=== PATIENT | female | born 1985 | race Two or more races ===

== ENCOUNTER 2017-02-12 17:01 | Emergency (ER) | payer BC, OTHER ==
[2017-02-12 17:35] VITALS: BP 143/56
--- NOTE | 2017-02-12 18:38 | UC ---
Ear Complaint HPI - HPI Summary HPI Summary: Noticed some pain and swelling sensation behind L ear about 5 days ago. Also noticed hard lump in neck below this. denies fever or vomiting. No recent URI sx or allergies. No past ENT surgeries. - History of Current Complaint Chief Complaint: UCEar Stated Complaint: EAR ACHE Time Seen by Provider: 02/12/17 18:19 Hx Obtained From: Patient ?: No Onset/Duration: Gradual Onset, Lasting Days Severity Initially: Mild Severity Currently: Mild Alleviating Factors: Nothing Associated Signs/Symptoms: Positive: Swelling @. Negative: Discharge, Hearing Loss, URI Symptoms - Allergies/Home Medications Allergies/Adverse Reactions: Allergies Allergy/AdvReac Type Severity Reaction Status Date / Time No Known Allergies Allergy Verified 02/12/17 17:30 PMH/Surg Hx/FS Hx/Imm Hx GI/ History Of: Reports: Ulcer - Surgical History Surgical History: None - Family History Known Family History: Positive: Hypertension - Social History Alcohol Use: Rare Substance Use Type: None Smoking Status (MU): Never Smoked Tobacco Review of Systems Constitutional: Negative Skin: Other - painful behind L ear Eyes: Negative ENT: Negative Respiratory: Negative Cardiovascular: Negative Gastrointestinal: Negative Genitourinary: Negative Motor: Negative Neurovascular: Negative Musculoskeletal: Negative Neurological: Negative Psychological: Negative All Other Systems Reviewed And Are Negative: Yes Physical Exam Triage Information Reviewed: Yes Appearance: Well-Appearing, No Pain Distress, Well-Nourished Vital Signs: Initial Vital Signs Temp 98.0 F 02/12/17 17:30 Pulse 65 02/12/17 17:30 Resp 16 02/12/17 17:30 BP 143/56 02/12/17 17:30 Pulse Ox 100 02/12/17 17:30 Vital Signs Reviewed: Yes Eye Exam: Normal Eyes: Positive: Conjunctiva Clear ENT: Positive: Hearing grossly normal, Pharynx normal, TMs normal, Other: - redness, swelling at crease where L helix joins the head. No fluctuance noted.. Negative: Nasal congestion, Nasal drainage, TM bulging, TM dull, TM red, Tonsillar swelling, Tonsillar exudate Dental Exam: Normal Dental: Negative: Percussion Tenderness @, Gross Decay/Caries @, Dental Fracture @ Neck: Positive: Supple, Enlarged Nodes @ - L postauricular Respiratory Exam: Normal Respiratory: Positive: Chest non-tender, Lungs clear, Normal breath sounds, No respiratory distress, No accessory muscle use Cardiovascular Exam: Normal Cardiovascular: Positive: RRR, No Murmur Musculoskeletal Exam: Normal Neurological Exam: Normal Neurological: Positive: Alert Psychological Exam: Normal Skin Exam: Other - Behind L ear, as above Ear Complaint Course/Dx - Differential Dx/Diagnosis Provider Diagnoses: small skin infection behind L ear Discharge - Discharge Plan Condition: Stable Disposition: HOME Prescriptions: Cephalexin CAP* [Keflex 500 CAP*] 500 mg PO TID #15 cap Referrals: Brooke Stephens MD [Primary Care Provider] - Additional Instructions: The small infection behind your ear should steadily improve in the next few days. As we discussed, the lymph node may take days or weeks to resolve. If you have prolonged or recurrent symptoms, please see your primary care provider. If you have high fevers, marked swelling, or sudden worsening of any kind, please go to the emergency department.
== END 2017-02-12 18:51 | disposition home or self-care (01) ==
LOC: UCEAST 17:01
DX: L08.9 Local infection of the skin and subcutaneous tissue, unspecified (principal); K25.9 Gastric ulcer, unspecified as acute or chronic, without hemorrhage or perforation
CPT/HCPCS: 99212; G0463

== ENCOUNTER 2017-10-21 09:02 | Emergency (ER) | payer BC ==
[2017-10-21 09:50] VITALS: BP 110/66
--- NOTE | 2017-10-21 10:57 | UC ---
Complaint Female HPI - HPI Summary HPI Summary: 31 y/o female presets to the urgent care c/o frequency, burning on urination and pelvic pressure since Sunday10/19/2017. Pt states she took Azo yesterday morning to alleviate symptoms. Pain is 6/10 w/ urination, LMP: 10/03/2017 w/ regular menstrual cycles. Pt denies Hx of STD - History Of Current Complaint Chief Complaint: UCGU Stated Complaint: UTI Time Seen by Provider: 10/21/17 10:44 Hx Obtained From: Patient Hx Last Menstrual Period: 10/05/17 Pain Intensity: 2 - Allergies/Home Medications Allergies/Adverse Reactions: Allergies Allergy/AdvReac Type Severity Reaction Status Date / Time No Known Allergies Allergy Verified 10/21/17 09:41 Home Medications: Home Medications Cranberry (Vaccinium Macrocarp [Cranberry] 125 mg PO ONCE 10/21/17 [History Confirmed 10/21/17] Pumpkin Seed-Soy Germ [Azo Bladder Control/Go-Le] 1 cap PO ONCE 10/21/17 [ History Confirmed 10/21/17] PMH/Surg Hx/FS Hx/Imm Hx - Surgical History Surgical History: None Surgery Procedure, Year, and Place: tonsilectomy - Family History Known Family History: Positive: Hypertension - Social History Alcohol Use: Rare Substance Use Type: None Smoking Status (MU): Never Smoked Tobacco Physical Exam Triage Information Reviewed: Yes Vital Signs: Initial Vital Signs Temp 99.1 F 10/21/17 09:44 Pulse 84 10/21/17 09:44 Resp 18 10/21/17 09:44 BP 110/66 10/21/17 09:44 Pulse Ox 100 10/21/17 09:44 - Additional Comments VITAL SIGNS: Reviewed. GENERAL: Patient is a well developed and nourished female who is sitting comfortable in the examining table. Patient is not in any acute respiratory distress. HEAD AND FACE: No signs of trauma. No ecchymosis, hematomas or skull depressions. No sinus tenderness. EYES: PERRLA, EOMI x 2, No injected conjunctiva, clear watery eyes, no nystagmus. No photophobia. EARS: Hearing grossly intact. Ear canals and tympanic membranes are within normal limits. MOUTH: pharynx with no erythema, no exudates,no palatal petechiae. no B/L tonsillar enlargement Uvula in midline. NECK: Supple, trachea is midline, no lymphadenopathy, no JVD, no carotid bruit, no c-spine tenderness, neck with full ROM. CHEST: Symmetric, no tenderness at palpation LUNGS: Clear to auscultation bilaterally. No wheezing or crackles. CVS: Regular rate and rhythm, S1 and S2 present, no murmurs or gallops appreciated. ABDOMEN: Soft, non-tender. No signs of distention. No rebound no guarding, and no masses palpated. Bowel sounds are normal. BACK:no scoliosis or lesions, non tender to palpation, No B/L CVA tenderness EXTREMITIES: FROM in all major joints, no edema, no cyanosis or clubbing. NEURO: Alert and oriented x 3. No acute neurological deficits. Speech is normal and follows commands. SKIN: Dry and warm Complaint Female Dx - Differential Dx/Diagnosis Differential Diagnosis/HQI/PQRI: Cervicitis, Pelvic Inflammatory Disease, Renal Colic, Sexually Transmitted Disease, Ureteral Stone, Urinary Tract Infection Provider Diagnoses: 1- UTI. 2- Dysuria Discharge - Discharge Plan Condition: Stable Disposition: HOME Prescriptions: Nitrofurantoin Monohyd Macro [Macrobid] 100 mg PO BID #14 cap Patient Education Materials: Urinary Tract Infection in Women (ED) Referrals: Brooke Stephens MD [Primary Care Provider] - If Needed Additional Instructions: 1- Please take Macrobid 100mg PO x 7 days. Continue taking Pyridium 100 mg PO TID x 2 days to alleviate urinary symptoms. Increase increase fluid intake. drink cranberry juice. 2-Urine sent for culture if any abnormality, you will be notified for further treatment. 3-If symptoms do not improve please return to the urgent care or f/u with her PCP.
== END 2017-10-21 10:59 | disposition home or self-care (01) ==
LOC: UCEAST 09:02
DX: N39.0 Urinary tract infection, site not specified (principal); R30.0 Dysuria
CPT/HCPCS: 81003; 81025; 87077; 87086; 87186; 99212; G0463

== ENCOUNTER 2018-05-30 16:20 | Emergency (ER) | payer BC ==
[2018-05-30 17:06] VITALS: BP 117/76
--- NOTE | 2018-05-30 17:20 | UC ---
Complaint Female HPI - HPI Summary HPI Summary: 32 yo female presents with urinary burning and urgency for one week. She took cystex OTC for 3 days, which relieved her symptoms at first, but then her symptoms returned. She denies fever, chills, abdominal pain, n/v, vaginal discharge, hematuria, or flank pain. - History Of Current Complaint Chief Complaint: UCGU Stated Complaint: BURNING URINATION Time Seen by Provider: 05/30/18 17:20 Hx Obtained From: Patient Hx Last Menstrual Period: 05/24/18 Onset/Duration: Gradual Onset Severity Initially: Mild Severity Currently: Moderate Pain Intensity: 6 Pain Scale Used: 0-10 Numeric - Allergies/Home Medications Allergies/Adverse Reactions: Allergies Allergy/AdvReac Type Severity Reaction Status Date / Time No Known Allergies Allergy Verified 05/30/18 17:06 PMH/Surg Hx/FS Hx/Imm Hx - Additional Past Medical History Additional PMH: None Previously Healthy: Yes - Surgical History Surgical History: Yes Surgery Procedure, Year, and Place: tonsilectomy - Family History Known Family History: Positive: Hypertension - Social History Occupation: Employed Full-time Lives: With Family Alcohol Use: Occasionally Substance Use Type: None Smoking Status (MU): Former Smoker Review of Systems Constitutional: Negative Skin: Negative Respiratory: Negative Cardiovascular: Negative Gastrointestinal: Negative Genitourinary: Dysuria, Frequency, Urgency Neurovascular: Negative Neurological: Negative Psychological: Negative All Other Systems Reviewed And Are Negative: Yes Physical Exam - Summary Physical Exam Summary: GENERAL: NAD. WDWN. No pain distress. SKIN: No rashes, sores, lesions, or open wounds. NECK: Supple. Nontender. No lymphadenopathy. CHEST: CTAB. No r/r/w. No accessory muscle use. Breathing comfortably and in no distress. CV: RRR. Without m/r/g. Pulses intact. Cap refill <2seconds ABDOMEN: Soft. NTTP. No distention or guarding. No CVA tenderness. Bowel sounds present NEURO: Alert. PSYCH: Age appropriate behavior. Triage Information Reviewed: Yes Vital Signs: Initial Vital Signs Temp 98.1 F 05/30/18 17:01 Pulse 70 05/30/18 17:01 Resp 18 05/30/18 17:01 BP 117/76 05/30/18 17:01 Pulse Ox 100 05/30/18 17:01 Laboratory Tests 05/30/18 17:22 POC Urine Color Yellow POC Urine Clarity Slightly cloudy POC Urine pH 6.0 POC Ur Specif [facility] 1.010 POC Urine Protein Negative POC Ur Glucose (UA) Negative POC Urine Ketones Negative POC Urine Blood 3+ A POC Urine Nitrite Negative POC Urine Bilirubin Negative POC Urine Urobilinogen 0.2 POC U Leukocyte Esteras Trace A Vital Signs Reviewed: Yes Complaint Female Dx - Course Course Of Treatment: UA with trace leuks and 3+ blood. Will treat for UTI and send for culture. - Differential Dx/Diagnosis Provider Diagnoses: UTI Discharge - Sign-Out/Discharge Documenting (check all that apply): Patient Departure All imaging exams completed and their final reports reviewed: No Studies - Discharge Plan Condition: Stable Disposition: HOME Prescriptions: Sulfamethox/Trimethoprim DS* [Bactrim DS 800/160 TAB*] 1 tab PO BID #10 tab Patient Education Materials: Urinary Tract Infection in Women (ED) Referrals: Kaylee Bond MD [Primary Care Provider] - Additional Instructions: If you develop a fever, shortness of breath, chest pain, new or worsening symptoms - please call your PCP or go to the ED. - Billing Disposition and Condition Condition: STABLE Disposition: Home - Attestation Statements Provider Attestation: Per institutional requirements, I have reviewed the chart, however, I was not consulted specifically or made aware of this patient by the midlevel provider. I did not personally evaluate, interact with , or disposition this patient
== END 2018-05-30 17:41 | disposition home or self-care (01) ==
LOC: UCEAST 16:20
DX: N39.0 Urinary tract infection, site not specified (principal); Z87.891 Personal history of nicotine dependence
CPT/HCPCS: 81003; 87086; 99212; G0463

== ENCOUNTER 2018-06-25 19:09 | Emergency (ER) | payer BC ==
--- NOTE | 2018-06-25 20:23 | UC ---
Hand/Wrist HPI - HPI Summary HPI Summary: 32 yo female presents with left middle finger injury on 06/17. She tells me that she was carrying heavy equipment and accidentally dropped this crushing her left middle finger at the proximal phalanx. Had mild pain, but didn't think much of it. Since that time she has had increasing pain and swelling and inability to fully flex. She denies numbness or tingling. Has not been applying ice or taking ibuprofen/tylenol. - History Of Current Complaint Stated Complaint: FINGER INJURY Time Seen by Provider: 06/25/18 20:23 Hx Obtained From: Patient Hx Last Menstrual Period: 05/24/18 Onset/Duration: Sudden Onset Severity Initially: Moderate Severity Currently: Moderate Pain Intensity: 6 Pain Scale Used: 0-10 Numeric - Allergies/Home Medications Allergies/Adverse Reactions: Allergies Allergy/AdvReac Type Severity Reaction Status Date / Time No Known Allergies Allergy Verified 06/25/18 20:30 PMH/Surg Hx/FS Hx/Imm Hx - Additional Past Medical History Additional PMH: None - Surgical History Surgical History: Yes Surgery Procedure, Year, and Place: tonsilectomy - Family History Known Family History: Positive: Hypertension - Social History Occupation: Employed Full-time Lives: With Family Alcohol Use: Occasionally Substance Use Type: None Smoking Status (MU): Former Smoker Review of Systems Constitutional: Negative Skin: Negative Respiratory: Negative Cardiovascular: Negative Neurovascular: Negative Musculoskeletal: Other: - Left middle finger pain Neurological: Negative Psychological: Negative All Other Systems Reviewed And Are Negative: Yes Physical Exam - Summary Physical Exam Summary: GENERAL: NAD. WDWN. No pain distress. SKIN: No rashes, sores, lesions, or open wounds. CHEST: No accessory muscle use. Breathing comfortably and in no distress. CV: Pulses intact radial and ulnar. Cap refill <2seconds MSK: Left middle finger: Mild edema and moderate TTP at proximal phalanx. Decreased flexion due to edema and pain. No obvious bony deformity or open wound. NEURO: Alert. Sensations intact hand and all fingers. PSYCH: Age appropriate behavior. Triage Information Reviewed: Yes Vital Signs: Vital Signs: Temp Pulse Resp BP Pulse Ox 98.2 F 93 12 129/84 100 06/25/18 20:24 06/25/18 20:24 06/25/18 20:24 06/25/18 20:24 06/25/18 20:24 Vital Signs Reviewed: Yes Hand/Wrist Course/Dx - Course Course Of Treatment: XR: No radiologist reading after 1800, therefore wet read by myself is negative for fracture. Pt was placed in a pre-made finger splint and advised to RICE and take ibuprofen. F/u with Sports Medicine if her symptoms do not improve. - Differential Dx/Diagnosis Provider Diagnoses: Left middle finger pain Discharge - Sign-Out/Discharge Documenting (check all that apply): Patient Departure All imaging exams completed and their final reports reviewed: No - Discharge Plan Condition: Stable Disposition: HOME Patient Education Materials: Finger Sprain (ED) Referrals: Kaylee Bond MD [Primary Care Provider] - [facility] [Provider Group] - If Needed Additional Instructions: If you develop a fever, shortness of breath, chest pain, new or worsening symptoms - please call your PCP or go to the ED. 1) Rest and ice your finger as much as possible 2) Use the finger splint as much as possible to reduce pain and swelling 3) May take 400-600mg ibuprofen as needed every 6-8hours for pain 4) If your symptoms do not improve, please follow up with Sports Medicine at the number below - Billing Disposition and Condition Condition: STABLE Disposition: Home - Attestation Statements Provider Attestation: Per institutional requirements, I have reviewed the chart, however, I was not consulted specifically or made aware of this patient by the midlevel provider. I did not personally evaluate, interact with , or disposition this patient.
[2018-06-25 20:30] VITALS: BP 129/84
--- NOTE | 2018-06-26 07:50 | RAD ---
Indication: Crush injury LEFT middle finger 8 days ago. Pain and tingling. Comparison: No relevant prior exams available on the [facility] PACS for comparison. Technique: 3 views LEFT third finger. REPORT AND IMPRESSION: #. Negative for fracture or malalignment. Mild fusiform soft tissue swelling at the proximal phalanx and proximal interphalangeal joint. R0
--- NOTE | 2018-06-26 08:09 | UC ---
- EKG/XRAY/CT Xray Comments: wet read correct Discharge - Sign-Out/Discharge Documenting (check all that apply): Post-Discharge Follow Up All imaging exams completed and their final reports reviewed: Yes - Discharge Plan Condition: Stable Disposition: HOME Patient Education Materials: Finger Sprain (ED) Referrals: [facility] [Provider Group] - If Needed Kaylee Bond MD [Primary Care Provider] - Additional Instructions: If you develop a fever, shortness of breath, chest pain, new or worsening symptoms - please call your PCP or go to the ED. 1) Rest and ice your finger as much as possible 2) Use the finger splint as much as possible to reduce pain and swelling 3) May take 400-600mg ibuprofen as needed every 6-8hours for pain 4) If your symptoms do not improve, please follow up with Sports Medicine at the number below - Billing Disposition and Condition Condition: STABLE Disposition: Home
== END 2018-06-25 21:05 | disposition home or self-care (01) ==
LOC: UCEAST 19:09
DX: M79.645 Pain in left finger(s) (principal); Z87.891 Personal history of nicotine dependence; W22.8XXA Striking against or struck by other objects, initial encounter; Y92.9 Unspecified place or not applicable
CPT/HCPCS: 73140; 99212; G0463